=== PATIENT | male | born 1990 | race Caucasian/White ===

== ENCOUNTER → 2019-06-30 | Outpatient (CLI) | payer BC ==
[~2019-06-30] MED LIST: ANTIBIOTIC O500 U/GM TP
== END | disposition home or self-care (01) ==
LOC: RAD 10:17
DX: J20.9 Acute bronchitis, unspecified (principal); Z87.891 Personal history of nicotine dependence

== ENCOUNTER 2021-05-27 15:32 | Emergency (ER) | payer BC ==
[~2021-05-27] VITALS: Wt 108.9 kg
== END 2021-05-27 16:35 | disposition home or self-care (01) ==
LOC: ED 15:32
DX: R00.2 Palpitations (principal); Z20.822 Contact with and (suspected) exposure to COVID-19; R06.02 Shortness of breath; R09.81 Nasal congestion; R05 Cough; R43.8 Other disturbances of smell and taste; R53.83 Other fatigue; Z79.2 Long term (current) use of antibiotics

== ENCOUNTER 2022-05-20 18:21 | Emergency (ER) | payer OTHER, BC ==
[~2022-05-20] VITALS: Wt 104.3 kg
== END 2022-05-20 22:09 | disposition home or self-care (01) ==
LOC: ED 18:21
DX: S16.1XXA Strain of muscle, fascia and tendon at neck level, initial encounter (principal); S29.019A Strain of muscle and tendon of unspecified wall of thorax, initial encounter; V49.49XA Driver injured in collision with other motor vehicles in traffic accident, initial encounter; Y93.89 Activity, other specified; Y92.89 Other specified places as the place of occurrence of the external cause; Y99.8 Other external cause status